=== PATIENT | female | born 1955 | race Caucasian/White ===

== ENCOUNTER → 2020-05-15 | Outpatient (CLI) | payer BC | LOC: US 13:30 | DX: N63.20 Unspecified lump in the left breast, unspecified quadrant (principal); N63.10 Unspecified lump in the right breast, unspecified quadrant; R92.8 Other abnormal and inconclusive findings on diagnostic imaging of breast | CPT/HCPCS: 76641-LT; 76641-RT ==

== ENCOUNTER → 2020-06-18 | Outpatient (CLI) | payer BC, OTHER | LOC: MAMO 13:03 | DX: R92.8 Other abnormal and inconclusive findings on diagnostic imaging of breast (principal) | CPT/HCPCS: 77065; G0279 ==

== ENCOUNTER → 2020-11-19 | Outpatient (CLI) | payer MEDICARE ==
[2020-11-19 09:52] LABS: HEMOGLOBIN 13.8 gm/dl (12.3-15.3); RED BLOOD COUNT 4.72 M/UL (4.00-5.10)
[2020-11-19 10:26] LABS: BUN/CREATININE RATIO 31 (0-10)
== END ==
LOC: LAB 08:52
PROVIDERS: Family Medicine
DX: Z13.220 Encounter for screening for lipoid disorders (principal); E78.5 Hyperlipidemia, unspecified; R53.83 Other fatigue; E55.9 Vitamin D deficiency, unspecified
CPT/HCPCS: 36415; 80053; 80061; 84439; 84443; 85027; 85610

== ENCOUNTER → 2021-07-16 | Outpatient (CLI) | payer OTHER | LOC: US 14:30 | DX: M79.605 Pain in left leg (principal); M79.89 Other specified soft tissue disorders | CPT/HCPCS: 93971 ==

== ENCOUNTER → 2021-08-30 | Outpatient (CLI) | payer OTHER ==
[2021-08-30 17:16] LABS: HEMOGLOBIN 12.5 gm/dl (12.3-15.3); RED BLOOD COUNT 4.52 M/UL (4.00-5.10)
[2021-08-30 17:50] LABS: BUN/CREATININE RATIO 45 (0-10)
== END ==
LOC: LAB 15:57
PROVIDERS: Nurse Practitioner Family
DX: I87.2 Venous insufficiency (chronic) (peripheral) (principal); R60.0 Localized edema
CPT/HCPCS: 36415; 80053; 85025

== ENCOUNTER → 2021-08-31 | Outpatient (CLI) | payer OTHER | LOC: WCC 09:00 | DX: I87.2 Venous insufficiency (chronic) (peripheral) (principal); L97.922 Non-pressure chronic ulcer of unspecified part of left lower leg with fat layer exposed; R60.0 Localized edema; M79.662 Pain in left lower leg; E66.01 Morbid (severe) obesity due to excess calories; Z68.34 Body mass index [BMI] 34.0-34.9, adult ==

== ENCOUNTER → 2021-09-07 | Outpatient (CLI) | payer OTHER | END | disposition home or self-care (01) | LOC: WCC 07:13 | DX: I87.2 Venous insufficiency (chronic) (peripheral) (principal); L97.922 Non-pressure chronic ulcer of unspecified part of left lower leg with fat layer exposed; M79.662 Pain in left lower leg; R60.0 Localized edema; E66.01 Morbid (severe) obesity due to excess calories; Z79.01 Long term (current) use of anticoagulants; Z79.899 Other long term (current) drug therapy; Z68.34 Body mass index [BMI] 34.0-34.9, adult ==

== ENCOUNTER → 2021-09-16 | Outpatient (CLI) | payer OTHER | END | disposition home or self-care (01) | LOC: WCC 07:25 | DX: I87.2 Venous insufficiency (chronic) (peripheral) (principal); L97.922 Non-pressure chronic ulcer of unspecified part of left lower leg with fat layer exposed; R60.0 Localized edema; M79.662 Pain in left lower leg; E66.01 Morbid (severe) obesity due to excess calories; Z68.34 Body mass index [BMI] 34.0-34.9, adult; Z79.01 Long term (current) use of anticoagulants ==

== ENCOUNTER → 2021-09-20 | Outpatient (CLI) | payer OTHER | END | disposition home or self-care (01) | LOC: WCC 09:12 | DX: I87.2 Venous insufficiency (chronic) (peripheral) (principal); L97.929 Non-pressure chronic ulcer of unspecified part of left lower leg with unspecified severity; R60.0 Localized edema ==

== ENCOUNTER → 2021-09-23 | Outpatient (CLI) | payer OTHER | END | disposition home or self-care (01) | LOC: WCC 07:07 | DX: I87.2 Venous insufficiency (chronic) (peripheral) (principal); L97.822 Non-pressure chronic ulcer of other part of left lower leg with fat layer exposed; R60.0 Localized edema; M79.662 Pain in left lower leg; E66.01 Morbid (severe) obesity due to excess calories; Z79.01 Long term (current) use of anticoagulants; Z68.34 Body mass index [BMI] 34.0-34.9, adult ==

== ENCOUNTER → 2021-09-30 | Outpatient (CLI) | payer OTHER | END | disposition home or self-care (01) | LOC: WCC 07:08 | DX: I87.2 Venous insufficiency (chronic) (peripheral) (principal); L97.922 Non-pressure chronic ulcer of unspecified part of left lower leg with fat layer exposed; R60.0 Localized edema; M79.662 Pain in left lower leg; E66.01 Morbid (severe) obesity due to excess calories; Z79.01 Long term (current) use of anticoagulants; Z68.34 Body mass index [BMI] 34.0-34.9, adult ==

== ENCOUNTER → 2021-10-18 | Outpatient (CLI) | payer OTHER | LOC: WCC 07:47 | DX: L97.922 Non-pressure chronic ulcer of unspecified part of left lower leg with fat layer exposed (principal) ==

== ENCOUNTER → 2021-10-21 | Outpatient (CLI) | payer OTHER | END | disposition home or self-care (01) | LOC: WCC 07:07 | DX: I87.2 Venous insufficiency (chronic) (peripheral) (principal); L97.922 Non-pressure chronic ulcer of unspecified part of left lower leg with fat layer exposed; R60.0 Localized edema; M79.662 Pain in left lower leg; E66.01 Morbid (severe) obesity due to excess calories; Z79.01 Long term (current) use of anticoagulants; Z68.34 Body mass index [BMI] 34.0-34.9, adult ==

== ENCOUNTER → 2021-10-25 | Outpatient (CLI) | payer OTHER | LOC: WCC 07:26 | DX: I87.2 Venous insufficiency (chronic) (peripheral) (principal); L97.922 Non-pressure chronic ulcer of unspecified part of left lower leg with fat layer exposed; M19.90 Unspecified osteoarthritis, unspecified site ==

== ENCOUNTER → 2021-10-28 | Outpatient (CLI) | payer OTHER | LOC: WCC 07:24 | DX: I87.2 Venous insufficiency (chronic) (peripheral) (principal); L97.922 Non-pressure chronic ulcer of unspecified part of left lower leg with fat layer exposed; R60.0 Localized edema; M79.662 Pain in left lower leg; E66.01 Morbid (severe) obesity due to excess calories; Z68.34 Body mass index [BMI] 34.0-34.9, adult ==

== ENCOUNTER → 2021-11-09 | Outpatient (CLI) | payer OTHER | LOC: WCC 08:34 | DX: L97.822 Non-pressure chronic ulcer of other part of left lower leg with fat layer exposed (principal); R60.0 Localized edema; E66.01 Morbid (severe) obesity due to excess calories; Z79.01 Long term (current) use of anticoagulants ==